=== PATIENT | female | born 1950 | race Caucasian/White ===

== ENCOUNTER 2018-08-30 15:04 | Outpatient (CLI) | payer MEDICARE, MEDICAID ==
--- NOTE | 2018-08-30 16:10 | ULT ---
LEFT LOWER EXTREMITY VENOUS DUPLEX ULTRASOUND INCLUDING COLOR AND SPECTRAL DOPPLER IMAGING: Date: 08/30/18 HISTORY: Localized swelling and edema left leg. TECHNIQUE: Exam performed from groin to ankle including visualized greater saphenous, common femoral, superficia l femoral, profunda femoral, popliteal, trifurcation, and posterior tibial vein regions. FINDINGS: Phasic flow noted at all levels with normal compressibility and normal augmentation. No intraluminal thrombus. IMPRESSION: No evidence for deep venous thrombosis. Very minimal superficial subcutaneous edema of the left lowe r extremity. POS: T[facility]
== END 2018-08-30 15:05 | disposition home or self-care (01) ==
LOC: BICULT 15:04
PROVIDERS: ATTEND Family Medicine
DX: R22.42 Localized swelling, mass and lump, left lower limb (principal); R60.0 Localized edema

== ENCOUNTER 2018-09-27 08:56 | Outpatient (CLI) | payer MEDICARE, MEDICAID ==
--- NOTE | 2018-09-27 10:25 | BD ---
DEXA BONE DENSITY EXAM: HISTORY: A 68-year-old postmenopausal female for screening. COMPARISON: 04/26/2012. FINDINGS: BMD (g/cm2) Left Femoral Neck 0.588 T-Score: -2.3 Total Proximal Left Neck 0.590 T-Score: -2.9 Right Femoral Neck 0.611 T-Score: -2.1 Total Proximal Right Neck 0.641 T-Score: -2.5 Impression: Osteopenia. This patient has approximately a 6 times increased risk for fracture when compared with young patients with normal bone mineral density. POS: C
== END 2018-09-27 08:57 | disposition home or self-care (01) ==
LOC: BICMAMMO 08:56
PROVIDERS: ATTEND Family Medicine
DX: Z12.31 Encounter for screening mammogram for malignant neoplasm of breast (principal); M81.0 Age-related osteoporosis without current pathological fracture; M85.89 Other specified disorders of bone density and structure, multiple sites
CPT/HCPCS: 77063; 77067; 77080

== ENCOUNTER 2019-04-10 07:28 | Outpatient (CLI) | payer MEDICARE, MEDICAID ==
--- NOTE | 2019-04-10 09:06 | CT ---
CT ANGIOGRAM HEAD CT ANGIOGRAM NECK: DATE: 04/10/2019. COMPARISON: None. HISTORY: Muscle weakness, dizziness, finger numbness and leg weakness. TECHNIQUE: Axial CT imaging obtained at 5 mm intervals from vertex through the skull base without contrast. Then , axial CT imaging was obtained at 2 mm intervals from the vertex through the lung apices with IV contrast using CT angiogram protocol with coronal and sagittal 3-D reformatted imaging. FINDINGS: Noncontrast enhanced head CT demonstrates no intracranial hemorrhage, midline shift, or mass effect. No ventricular enlargement. The visualized paranasal sinuses and mastoid air cells appear well aerated. Imaged lung apices demonstrate centrilobular emphysematous change. The origin of the innominate artery, left subclavian artery, and left common carotid artery are paten t. There is mild stenosis at the origin of the left common carotid artery on the basis of atherosclerotic plaque. The origin of the right subclavian and right common carotid artery are patent . There is mild stenosis at the origin of the right subclavian artery on the basis of calcified plaque. There is severe atherosclerotic plaque within the proximal left subclavian artery just proximal to th e origin of the left vertebral artery. There is severe stenosis at the origin of the left vertebral artery. The right vertebral artery is severely diseased. Right vertebral artery appears occluded at its origi n with distal reconstitution via muscular branches within the lower cervical region. Above this right vertebral artery is patent but markedly hypoplastic. The left vertebral artery is dominant and otherwise grossly unremarkable aside from the severe stenosis at its origin. On the basis of NASCET criteria, there is no hemodynamically significant stenosis involving the commo n carotid artery on the left. There is prominent calcified plaque within the proximal left internal carotid artery. The left healthcare administration internship al carotid artery is tortuous. There is mild stenosis at the origin of the left internal carotid artery. On the basis of NASCET criteria there is no hemodynamically significant stenosis involving the right common carotid artery. There is partially calcified plaque at the origin of the right internal carotid artery. There is a mild degree of stenosis at the origin of the right internal carotid artery . The retroantral fat and the parapharyngeal fat appears clear bilaterally. The parotid and submandibular glands appear grossly unremarkable. The tonsillar pillars, epiglottis and preepiglottic fat, hyoid bone, thyroid cartilage, and cricoid c artilage demonstrate no acute findings. There are a few tiny thyroid nodules, measuring up to 6 mm on the right. CT angiography of the head demonstrates a patent hypoplastic basilar artery. The P1 segments are eith er markedly hypoplastic or aplastic. There are patent bilateral posterior communicating arteries. No saccular aneurysm or vascular occlusion is seen involving the posterior circulation. The A1 segment is hypoplastic on the right. The ICA bifurcation is unremarkable bilaterally. 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 The anterior cerebral arteries are patent. The M1 segment is unremarkable. MCA bifurcation appears unremarkable. Distal MCA branches appear intact. Review of the osseous structures demonstrates multilevel cervical spine facet hypertrophy on the left . No worrisome lytic or blastic bone lesion is seen. No lymphadenopathy is noted within the neck. IMPRESSION: 1. 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 There is distal reconstitution of the right vertebr al artery. Distal reconstituted right vertebral artery is hypoplastic. 2. Severe stenosis at origin of left vertebral artery. 3. Atherosclerotic disease at the origin of bilateral internal carotid arteries with mild stenosis of the proximal ICA bilaterally. 4. 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 5. 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 Patent posterior communic ating arteries bilaterally. CODE T Transcribed Date/Time: 04/10/2019 11:23 AM
[2019-04-10] MEDS ORDERED: ISOVUE-370 76%-LOCM 1 ML ONE (15:19)
== END 2019-04-10 07:29 | disposition home or self-care (01) ==
LOC: BICCT 07:28
PROVIDERS: ATTEND Family Medicine
DX: R09.89 Other specified symptoms and signs involving the circulatory and respiratory systems (principal); M62.81 Muscle weakness (generalized); R42 Dizziness and giddiness; I65.02 Occlusion and stenosis of left vertebral artery; I65.01 Occlusion and stenosis of right vertebral artery; I65.23 Occlusion and stenosis of bilateral carotid arteries; I67.1 Cerebral aneurysm, nonruptured
CPT/HCPCS: 70496; 70498; 82565; Q9966

== ENCOUNTER 2021-06-08 09:31 | Emergency (ER) | payer MEDICARE, MEDICAID ==
[2021-06-08] MEDS ORDERED: predniSONE 20 MG TAB ONE (12:05)
== END 2021-06-08 12:05 | disposition home or self-care (01) ==
LOC: ERS 09:31
DX: J44.1 Chronic obstructive pulmonary disease with (acute) exacerbation (principal); F17.210 Nicotine dependence, cigarettes, uncomplicated; Z79.899 Other long term (current) drug therapy
CPT/HCPCS: 71046; J7512

== ENCOUNTER 2023-04-10 09:42 | Outpatient (CLI) | payer MEDICARE, MEDICAID | END 2023-04-10 09:43 | disposition home or self-care (01) | LOC: RAD 09:42 | PROVIDERS: ATTEND Student in an Organized Health Care Education/Training Program | DX: M25.511 Pain in right shoulder (principal); M25.512 Pain in left shoulder; G89.29 Other chronic pain; M81.0 Age-related osteoporosis without current pathological fracture; M47.814 Spondylosis without myelopathy or radiculopathy, thoracic region; M19.011 Primary osteoarthritis, right shoulder; M19.012 Primary osteoarthritis, left shoulder | CPT/HCPCS: 72072 ==

== ENCOUNTER 2023-05-18 08:13 | Outpatient (CLI) | payer MEDICARE, MEDICAID | END 2023-05-18 08:14 | disposition home or self-care (01) | LOC: BICMAMMO 08:13 | PROVIDERS: ATTEND Student in an Organized Health Care Education/Training Program | DX: M81.0 Age-related osteoporosis without current pathological fracture (principal) | CPT/HCPCS: 77080 ==